=== PATIENT | female | born 1930 | race Caucasian/White ===

== ENCOUNTER 2017-07-10 12:55 | Inpatient (IN) | payer MEDICARE, OTHER ==
[2017-07-10] MEDS ORDERED: SODIUM CHLORIDE 0.9% 1,000 ML IV STA ×3 (13:08→15:10)
[2017-07-10] MEDS ORDERED: LORazepam 2 MG/ML INJ IV STA (13:09)
--- NOTE | 2017-07-10 13:11 | ED ---
General Adult HPI - General Stated complaint: Near Syncope Time Seen by Provider: 07/10/17 13:02 Source: RN notes reviewed, old records reviewed - History of Present Illness Initial comments: This is an 86-year-old female to the ER for evaluation per patient is ER for evasive near syncope, versus syncope with collapse. Patient does have history of heart disease, patient herself is poor strain history of pain from chart and EMS. Patient apparently had near syncopal episode per staff and was elevated heartrate. EMS was called. Patient to ER. Patient is angry about being in emergency room, she denies any complaints and wants to go home, patient is unable to make her own medical decisions - Related Data Home Medications Medication Instructions Recorded Confirmed Acetaminophen Tab [Tylenol] 650 mg PO TID 06/08/14 07/10/17 Magnesium Hydroxide [Milk of 30 ml PO DAILY PRN 06/08/14 07/10/17 Magnesia Concentrate] Nitroglycerin Sl Tabs [Nitrostat] 0.4 mg SL Q5M PRN 06/08/14 07/10/17 Ranitidine HCl 75 mg PO HS 06/09/14 07/10/17 Aspirin EC [Ecotrin Low Dose] 81 mg PO DAILY 07/10/17 07/10/17 Colloidal Oatmeal [Eucerin Eczema 1 applic TOPICAL HS 07/10/17 07/10/17 Relief] Escitalopram [Lexapro] 10 mg PO DAILY 07/10/17 07/10/17 HYDROcodone/APAP 5-325MG [[place] 1 tab PO Q6HR PRN 07/10/17 07/10/17 5-325] Levothyroxine Sodium [Synthroid] 75 mcg PO DAILY 07/10/17 07/10/17 Lisinopril [Zestril] 10 mg PO DAILY 07/10/17 07/10/17 Loperamide HCl [Imodium A-D] 2 mg PO DAILY PRN 07/10/17 07/10/17 Memantine [Namenda] 10 mg PO BID 07/10/17 07/10/17 Mylanta 30 ml PO Q6H PRN 07/10/17 07/10/17 Allergies Allergy/AdvReac Type Severity Reaction Status Date / Time No Known Allergies Allergy Verified 07/10/17 14:15 Review of Systems ROS Statement: Those systems with pertinent positive or pertinent negative responses have been documented in the HPI. ROS Other: All systems not noted in ROS Statement are negative. Past Medical History Past Medical History: Heart Failure, Dementia, GERD/Reflux, Hypertension, Renal Disease, Thyroid Disorder Additional Past Medical History / Comment(s): ANEMIA History of Any Multi-Drug Resistant Organisms: None Reported Past Surgical History: Heart Catheterization With Stent, Hysterectomy Additional Past Surgical History / Comment(s): CERVICAL FUSION Past Anesthesia/Blood Transfusion Reactions: No Reported Reaction Date of Last Stent Placement:: UNKNOWN Past Psychological History: No Psychological Hx Reported Additional Psychological History / Comment(s): DEMENTIA Smoking Status: Never smoker Past Alcohol Use History: None Reported Past Drug Use History: None Reported - Past Family History Father Family Medical History: Cancer Additional Family Medical History / Comment(s): STOMACH CA Mother Family Medical History: Dementia General Exam Limitations: altered mental status General appearance: alert, in no apparent distress Head exam: Present: atraumatic, normocephalic, normal inspection Eye exam: Present: normal appearance, PERRL, EOMI. Absent: scleral icterus, conjunctival injection, periorbital swelling ENT exam: Present: normal exam, mucous membranes moist Neck exam: Present: normal inspection. Absent: tenderness, meningismus, lymphadenopathy Respiratory exam: Present: normal lung sounds bilaterally. Absent: respiratory distress, wheezes, rales, rhonchi, stridor Cardiovascular Exam: Present: normal rhythm, tachycardia, normal heart sounds. Absent: systolic murmur, diastolic murmur, rubs, gallop, clicks GI/Abdominal exam: Present: soft, normal bowel sounds. Absent: distended, tenderness, guarding, rebound, rigid Extremities exam: Present: normal inspection, full ROM, normal capillary refill. Absent: tenderness, pedal edema, joint swelling, calf tenderness Back exam: Present: normal inspection Neurological exam: Present: alert, oriented X3, CN II-XII intact Psychiatric exam: Present: normal affect, normal mood Skin exam: Present: warm, dry, intact, normal color. Absent: rash Course Vital Signs 07/10/17 07/10/17 13:00 14:19 Temperature 97.8 F Pulse Rate 98 104 H Respiratory 18 16 Rate Blood Pressure 150/69 111/56 O2 Sat by Pulse 97 97 Oximetry - Reevaluation(s) Reevaluation #1: 07/10/17 13:10 Medical record and transferring paperwork are reviewed Reevaluation #2: 07/10/17 16:28 She is much improved with IV hydration, patient sitting up in bed eating Medical Decision Making - Medical Decision Making 86 female to ER for eversion of heart rate and weakness. Patient severe severe dehydration on exam and labs. Patient will be admitted for IV hydration. Patient given antibiotics for possible underlying infection versus urinary tract infection. Patient currently sitting up in bed eating in no acute distress - Lab Data Result diagrams: 07/10/17 14:00 07/10/17 14:00 Lab Results 07/10/17 07/10/17 07/10/17 Range/Units 14:00 14:00 14:00 WBC 10.5 (3.8-10.6) k/uL RBC 4.30 (3.80-5.40) m/uL Hgb 13.1 (11.4-16.0) gm/dL Hct 40.4 (34.0-46.0) % MCV 94.0 (80.0-100.0) fL MCH 30.4 (25.0-35.0) pg MCHC 32.4 (31.0-37.0) g/dL RDW 14.3 (11.5-15.5) % Plt Count 283 (150-450) k/uL Neutrophils % 53 % Lymphocytes % 37 % Monocytes % 6 % Eosinophils % 2 % Basophils % 1 % Neutrophils # 5.5 (1.3-7.7) k/uL Lymphocytes # 3.8 (1.0-4.8) k/uL Monocytes # 0.6 (0-1.0) k/uL Eosinophils # 0.2 (0-0.7) k/uL Basophils # 0.1 (0-0.2) k/uL PT (9.0-12.0) sec INR (<1.2) APTT (22.0-30.0) sec Sodium 146 H (137-145) mmol/L Potassium 4.8 (3.5-5.1) mmol/L Chloride 113 H (98-107) mmol/L Carbon Dioxide 15 L (22-30) mmol/L Anion Gap 18 mmol/L BUN 16 (7-17) mg/dL Creatinine 1.10 H (0.52-1.04) mg/dL Est GFR (MDRD) Af Amer 57 (>60 ml/min/1.73 sqM) Est GFR (MDRD) Non-Af 47 (>60 ml/min/1.73 sqM) Glucose 72 L (74-99) mg/dL Plasma Lactic Acid Carrillo (0.7-2.0) mmol/L Calcium 9.2 (8.4-10.2) mg/dL Phosphorus 3.6 (2.5-4.5) mg/dL Magnesium 1.9 (1.6-2.3) mg/dL Total Bilirubin 0.3 (0.2-1.3) mg/dL AST 24 (14-36) U/L ALT 21 (9-52) U/L Alkaline Phosphatase 85 (38-126) U/L Total Creatine Kinase 46 (30-135) U/L CK-MB (CK-2) 0.6 (0.0-2.4) ng/mL CK-MB (CK-2) Rel Index 1.3 Troponin I <0.012 (0.000-0.034) ng/mL Total Protein 7.1 (6.3-8.2) g/dL Albumin 4.0 (3.5-5.0) g/dL TSH 0.381 L (0.465-4.680) mIU/L Salicylates mg/dL Acetaminophen ug/mL Acetone, Qual (Negative) 07/10/17 07/10/17 07/10/17 Range/Units 14:00 14:00 14:00 WBC (3.8-10.6) k/uL RBC (3.80-5.40) m/uL Hgb (11.4-16.0) gm/dL Hct (34.0-46.0) % MCV (80.0-100.0) fL MCH (25.0-35.0) pg MCHC (31.0-37.0) g/dL RDW (11.5-15.5) % Plt Count (150-450) k/uL Neutrophils % % Lymphocytes % % Monocytes % % Eosinophils % % Basophils % % Neutrophils # (1.3-7.7) k/uL Lymphocytes # (1.0-4.8) k/uL Monocytes # (0-1.0) k/uL Eosinophils # (0-0.7) k/uL Basophils # (0-0.2) k/uL PT 9.6 (9.0-12.0) sec INR 1.0 (<1.2) APTT 22.2 (22.0-30.0) sec Sodium (137-145) mmol/L Potassium (3.5-5.1) mmol/L Chloride (98-107) mmol/L Carbon Dioxide (22-30) mmol/L Anion Gap mmol/L BUN (7-17) mg/dL Creatinine (0.52-1.04) mg/dL Est GFR (MDRD) Af Amer (>60 ml/min/1.73 sqM) Est GFR (MDRD) Non-Af (>60 ml/min/1.73 sqM) Glucose (74-99) mg/dL Plasma Lactic Acid Carrillo 6.3 H* (0.7-2.0) mmol/L Calcium (8.4-10.2) mg/dL Phosphorus (2.5-4.5) mg/dL Magnesium (1.6-2.3) mg/dL Total Bilirubin (0.2-1.3) mg/dL AST (14-36) U/L ALT (9-52) U/L Alkaline Phosphatase (38-126) U/L Total Creatine Kinase (30-135) U/L CK-MB (CK-2) (0.0-2.4) ng/mL CK-MB (CK-2) Rel Index Troponin I (0.000-0.034) ng/mL Total Protein (6.3-8.2) g/dL Albumin (3.5-5.0) g/dL TSH (0.465-4.680) mIU/L Salicylates <1.0 mg/dL Acetaminophen <10.0 ug/mL Acetone, Qual Negative (Negative) - Radiology Data Radiology results: report reviewed (S x-rays negative for acute disease), image reviewed Disposition Clinical Impression: Dehydration, Weakness, Lactic acidosis Disposition: ADMITTED IP TO THIS [facility] Condition: Fair Referrals: Lb Kiser MD [Primary Care Provider] - 1-2 days
[2017-07-10] MEDS ORDERED: LORazepam 2 MG/ML INJ IM STA (13:25)
[2017-07-10 14:23] LABS: Basophils # (A) 0.1 k/uL (0-0.2); Basophils % (A) 1 %; Eosinophils # (A) 0.2 k/uL (0-0.7); Eosinophils % (A) 2 %; HCT 40.4 % (34.0-46.0); HGB 13.1 gm/dL (11.4-16.0); Lymphocytes # (A) 3.8 k/uL (1.0-4.8); Lymphocytes % (A) 37 %; MCH 30.4 pg (25.0-35.0); MCHC 32.4 g/dL (31.0-37.0); Monocytes # (A) 0.6 k/uL (0-1.0); Monocytes % (A) 6 %; Neutrophils # (A) 5.5 k/uL (1.3-7.7); Neutrophils % (A) 53 %; Platelet Count 283 k/uL (150-450); RDW 14.3 % (11.5-15.5); WBC 10.5 k/uL (3.8-10.6)
[2017-07-10 14:28] LABS: Calcium 9.2 mg/dL (8.4-10.2); Magnesium 1.9 mg/dL (1.6-2.3); Phosphorus 3.6 mg/dL (2.5-4.5); Total Bilirubin 0.3 mg/dL (0.2-1.3); Total Protein 7.1 g/dL (6.3-8.2)
[2017-07-10 14:35] LABS: Creatine Kinase 46 U/L (30-135)
--- NOTE | 2017-07-10 14:35 | XR ---
EXAMINATION TYPE: XR chest 2V DATE OF EXAM: 07/10/2017 COMPARISON: Summary 22,014 HISTORY: Weakness. Chest pain. TECHNIQUE: Frontal and lateral views of the chest are obtained. FINDINGS: Large hiatal hernia is again noted. The lungs are clear. No pneumothorax or pleural effusi on is identified. The cardiac silhouette appears slightly enlarged. Calcifications are identified in the aortic arch. IMPRESSION: No change in appearance of the chest.
[2017-07-10 14:48] LABS: Creatine Kinase MB 0.6 ng/mL (0.0-2.4); Troponin I <0.012 ng/mL (0.000-0.034)
[2017-07-10 15:03] LABS: Potassium 4.8 mmol/L (3.5-5.1)
[2017-07-10 15:10] LABS: Partial Thromboplastin Time 22.2 sec (22.0-30.0); Prothrombin Time 9.6 sec (9.0-12.0)
[2017-07-10] MEDS ORDERED: DEXTROSE 50%-WATER 50 ML SYRINGE IVP STA (15:10)
[2017-07-10 15:31] LABS: Acetaminophen <10.0 ug/mL; Salicylate <1.0 mg/dL
[2017-07-10] MEDS ORDERED: SODIUM CHLORIDE 0.9% 1,000 ML IV ONE (16:26)
[2017-07-10] MEDS ORDERED: cefTRIAXone IN SWFI 1,000 MG/10 ML SYRINGE IVP STA (16:27)
[2017-07-10 21:56] VITALS: BMI 20.2
[2017-07-11] MEDS: LORazepam 2 MG/ML INJ IV PRN ×2 (01:57→23:25)
[2017-07-11] MEDS: ENOXAPARIN 40 MG/0.4 ML SYRINGE SQ SCH (09:08)
[2017-07-11] MEDS: cefTRIAXone IN SWFI 1,000 MG/10 ML SYRINGE IVP SCH (09:33)
--- NOTE | 2017-07-11 09:36 | HP ---
HISTORY AND PHYSICAL DATE OF SERVICE: 07/10/2017 CHIEF COMPLAINT: Near syncope and collapse. HISTORY OF PRESENT ILLNESS: This 86-year-old woman with a past medical history of multiple medical problems including CHF, history of dementia, GERD, hypertension, history of anemia, history of CAD and stent being followed by Dr. Kiser in [facility], has had an episode of syncope. The patient apparently had diminished p.o. intake and patient was found to have dehydration at which time was admitted for further evaluation and treatment. The patient was currently confused and unable to give any coherent history. Most of the history taken my discussion with staff and as well as review of the chart. Plasma lactic acid elevated on admission. PAST MEDICAL HISTORY: History of CHF, dementia, GERD, hypertension, history of hypothyroidism, history anemia. MEDICATIONS: Home medications are; 1. Ranitidine 75 mg q.h.s. 2. Nitro 0.4 sublingual p.r.n. 3. Mylanta 30 mL q.6. 4. Namenda 10 mg b.i.d. 5. Magnesium, Milk of Magnesia. 6. Imodium A-D 2 mg daily p.r.n. 7. Zestril 10 mg p.o. daily. 8. Synthroid 75 mcg p.o. daily. 9. [place] 5 mg q.6 p.r.n. 10.Lexapro 10 mg daily. 11.Eucerin 1 application topically q.h.s. 12.Ecotrin 81 mg daily. 13.Tylenol 650 p.o. t.i.d. ALLERGIES: Allergies are none. Family history, social history, review of systems could not be taken because of the patient's change in mental status. Apparently family history has stomach cancer in the family and no history of smoking per chart. PHYSICAL EXAM: The patient is conscious, but confused, arousable. Pulse 82, blood pressure 135/60, respirations 16, temperature 97.8, pulse ox 98% on room air. HEENT: Conjunctivae normal. Oral mucosa is dry. NECK: No jugular venous distention. No carotid bruit. No lymph node enlargement. CARDIOVASCULAR: S1, S2 muffled. No S3 or S4. RESPIRATORY: Breath sounds diminished at the bases. A few scattered rhonchi and crackles. ABDOMEN: Soft, nontender. No mass palpable. LEGS: No edema, no swelling. NERVOUS SYSTEM: Higher functions as mentioned earlier. Moves all 4 limbs. No focal deficits. LYMPHATICS: No lymphadenopathy of the neck, axillae or groin. SKIN: No ulcer, rash or bleeding. JOINTS: No active deforming arthropathy. LABS: CBC within normal. Sodium 146. Creatinine 1.10. Lactic acid is 6.3. ASSESSMENT: 1. Severe dehydration as well as acute prerenal renal failure with acute tubular necrosis, present on admission. 2. Dementia. 3. Elevated plasma lactic acid secondary dehydration. 4. Hypernatremia. 5. Reduced TSH. 6. History of dementia. 7. History of congestive heart failure. 8. History of gastroesophageal reflux disease. 9. Hypertension. 10.History of hypothyroidism. 11.History of coronary artery disease and stent. 12.History of hysterectomy. RECOMMENDATIONS AND DISCUSSION: This 86-year-old woman who presented with multiple complex medical issues, will monitor the patient closely. Continue the current medications. Continue symptomatic treatment. Otherwise at this time I recommend resume the home medications. IV fluids. I would recommend also check free T4, free T3 also and if they are elevated recommend to reduced dose of thyroid. Otherwise repeat labs will be recommended. Guarded prognosis because of multiple complex medical issues. Further recommendations to follow. A copy of dictation forwarded to Dr. Kiser who is the primary physician. Empiric antibiotics have been initiated will follow the cultures. MMODL / IJN: [id number] /
[2017-07-11] MEDS ORDERED: NITROGLYCERIN SL TABS 0.4 MG TAB SUBLINGUAL PRN (10:28)
[2017-07-11] MEDS ORDERED: HYDROcodone/APAP 5-325MG 1 EACH TAB PO PRN (10:28)
[2017-07-11] MEDS ORDERED: LOPERAMIDE 2 MG CAP PO PRN (10:28)
[2017-07-11] MEDS ORDERED: MAGNESIUM HYDROXIDE 2,400 MG/10 ML CUP PO PRN (10:28)
[2017-07-11] MEDS: ESCITALOPRAM 10 MG TAB PO SCH (11:58)
[2017-07-11] MEDS: ASPIRIN 81 MG PO SCH (11:58)
[2017-07-11] MEDS: LISINOPRIL 10 MG TAB PO SCH (11:58)
[2017-07-11 14:39] LABS: Anion Gap 8 mmol/L; Blood Urea Nitrogen 11 mg/dL (7-17); Calcium 8.2 mg/dL (8.4-10.2); Carbon Dioxide 20 mmol/L (22-30); Chloride 115 mmol/L (98-107); Glucose 103 mg/dL (74-99); Sodium 143 mmol/L (137-145)
[2017-07-11] MEDS: ACETAMINOPHEN TAB 325 MG TAB PO SCH ×2 (17:30→21:28)
[2017-07-11] MEDS: SODIUM CHLORIDE 0.9% 1,000 ML IV SCH ×2 (17:30→23:26)
[2017-07-11 18:42] LABS: T4, Free (Free Thyroxine) 1.38 ng/dL (0.78-2.19)
[2017-07-11] MEDS ORDERED: FAMOTIDINE 20 MG TAB PO SCH (21:00)
--- NOTE | 2017-07-11 22:06 | PN ---
PROGRESS NOTE DATE OF SERVICE: 07/11/2017. INTERVAL HISTORY: This 86-year-old woman was admitted with severe dehydration as well as acute renal failure with acute tubular necrosis, being closely monitored. After IV fluids, sensorium is slightly improved, but patient still continues to be completely confused and slightly combative. No chest pain. No palpitations. No fever. EXAM: The patient is conscious but confused. Pulse 80, blood pressure 168/77, respiration 18, temperature 97.2, pulse ox 98% on room air. HEENT conjunctivae normal. Neck: No jugular venous distention. Cardiovascular: S1, S2 muffled. Respiratory: Breath sounds diminished at the bases. A few scattered rhonchi. No crackles. Abdomen is soft, nontender. Legs are no edema. Central nervous system: No focal deficits. LABS: Sodium 143 and glucose 103, plasma lactic acid 1.7. Influenza not detected. ASSESSMENT: 1. Severe dehydration as well as acute prerenal acute renal failure with acute tubular necrosis, present on admission because of diminished p.o. intake. 2. Dementia. 3. Elevated plasma lactic acid secondary dehydration. 4. Hypernatremia. 5. Reduced TSH. 6. History of dementia. 7. History of congestive heart failure. 8. History of gastroesophageal reflux disease. 9. Hypertension. 10.Hypothyroidism. 11.History of coronary artery disease, stent. 12.History of hysterectomy. RECOMMENDATIONS AND DISCUSSION: Continue current medications, management and symptomatic treatment. Otherwise, at this time, I would recommend continue with IV fluids. Repeat labs. Also check free T3 and free T4. Otherwise continue the rest of the medications. There is no obvious evidence of infections at this time. Continue to monitor. Further recommendations to follow. UA is still pending. We will obtain the UA with micro as well. MMODL / IJN: [id number] /
[2017-07-11] MEDS: MEMANTINE 10 MG TAB PO SCH (22:14)
[2017-07-12] MEDS: LORazepam 2 MG/ML INJ IV PRN (04:19)
[2017-07-12] MEDS ORDERED: LEVOTHYROXINE 75 MCG TAB PO SCH (06:30)
[2017-07-12 08:05] VITALS: BP 175/81; PULSE 94; RESP 18; TEMP 97.4
[2017-07-12 08:12] LABS: Basophils # (A) 0.1 k/uL (0-0.2); Basophils % (A) 1 %; Eosinophils # (A) 0.2 k/uL (0-0.7); Eosinophils % (A) 3 %; HCT 34.8 % (34.0-46.0); HGB 11.6 gm/dL (11.4-16.0); Lymphocytes # (A) 1.7 k/uL (1.0-4.8); Lymphocytes % (A) 32 %; MCH 30.6 pg (25.0-35.0); MCHC 33.3 g/dL (31.0-37.0); MCV 91.7 fL (80.0-100.0); Mean Platelet Volume 7.6; Monocytes # (A) 0.3 k/uL (0-1.0); Monocytes % (A) 7 %; Neutrophils # (A) 2.9 k/uL (1.3-7.7); Neutrophils % (A) 55 %; Platelet Count 211 k/uL (150-450); RDW 13.9 % (11.5-15.5); WBC 5.2 k/uL (3.8-10.6)
[2017-07-12 08:35] LABS: Anion Gap 9 mmol/L; Blood Urea Nitrogen 9 mg/dL (7-17); Calcium 8.7 mg/dL (8.4-10.2); Carbon Dioxide 20 mmol/L (22-30); Chloride 114 mmol/L (98-107); Glucose 74 mg/dL (74-99); Potassium 3.9 mmol/L (3.5-5.1); Sodium 143 mmol/L (137-145)
[2017-07-12] MEDS: ENOXAPARIN 40 MG/0.4 ML SYRINGE SQ SCH (09:07)
[2017-07-12] MEDS: ASPIRIN 81 MG PO SCH (09:08)
[2017-07-12] MEDS: MEMANTINE 10 MG TAB PO SCH (09:08)
[2017-07-12] MEDS: ESCITALOPRAM 10 MG TAB PO SCH (09:08)
[2017-07-12] MEDS: LISINOPRIL 10 MG TAB PO SCH (09:08)
[2017-07-12] MEDS: ACETAMINOPHEN TAB 325 MG TAB PO SCH (09:13)
[2017-07-12] MEDS: cefTRIAXone IN SWFI 1,000 MG/10 ML SYRINGE IVP SCH (09:14)
[2017-07-12 10:35] LABS: Appearance,Urine Clear (Clear); Bilirubin,Urine Negative (Negative); Blood,Urine Negative (Negative); Color,Urine Colorless; Glucose,Urine (UA) Negative (Negative); Ketones,Urine Negative (Negative); Leukocyte Esterase,Urine Negative (Negative); Nitrite,Urine Negative (Negative); Protein,Urine Negative (Negative); Specific Gravity,Urine 1.007 (1.001-1.035); Urobilinogen,Urine <2.0 mg/dL (<2.0)
--- NOTE | 2017-07-12 13:15 | P.DS ---
Providers Date of admission: 07/10/17 16:26 Expected date of discharge: 07/12/17 Attending physician: Amy Laura Primary care physician: Lb Kiser [place] Hospital Course: Final Diagnoses: Severe dehydration as well as acute prerenal renal failure with acute tubular necrosis present on admission, secondary to diminished oral intake. Dementia Elevated Plasma lactic acid secondary to dehydration Hypernatremia Reduced TSH Chronic CHF GERDS HTN CAD Hospital course: This is an 86-year-old female admitted with severe dehydration , acute renal failure, acute tubular necrosis and multiple other medical issues. Received IV fluid hydration with significant clinical improvement in sensorium, confusion persists. Patient is being discharged to [facility] subacute rehab. in a stable condition with guarded prognosis. Physical exam::VSS, cardiovascular muffled S1 and S2, no edema. respiratory bilateral bases diminished with occasional scattered rhonchi, no crackles, abdomen soft nontender, and psychiatry: alert, confused. The impression and plan of care has been dictated as directed. : I performed a history and examination of this patient, discussed the same with the dictator. I agree with the dictator's note ,documented as a scribe. Any additional findings or plans will be noted. Time taken: 35 minutes Patient Condition at Discharge: Stable Plan - Discharge Summary New Discharge Prescriptions: Continue Acetaminophen Tab [Tylenol] 650 mg PO TID Nitroglycerin Sl Tabs [Nitrostat] 0.4 mg SL Q5M PRN PRN Reason: Chest Pain Magnesium Hydroxide [Milk of Magnesia Concentrate] 30 ml PO DAILY PRN PRN Reason: Constipation Ranitidine HCl 75 mg PO HS Aspirin EC [Ecotrin Low Dose] 81 mg PO DAILY Colloidal Oatmeal [Eucerin Eczema Relief] 1 applic TOPICAL HS Escitalopram [Lexapro] 10 mg PO DAILY Levothyroxine Sodium [Synthroid] 75 mcg PO DAILY Lisinopril [Zestril] 10 mg PO DAILY Loperamide HCl [Imodium A-D] 2 mg PO DAILY PRN PRN Reason: Loose Stool Memantine [Namenda] 10 mg PO BID Mylanta 30 ml PO Q6H PRN PRN Reason: Indigestion HYDROcodone/APAP 5-325MG [[place] 5-325] 1 tab PO Q6HR PRN #20 tab PRN Reason: Moderate To Severe Pain Discharge Medication List Acetaminophen Tab [Tylenol] 650 mg PO TID 06/08/14 [History] Magnesium Hydroxide [Milk of Magnesia Concentrate] 30 ml PO DAILY PRN 06/08/14 [ History] Nitroglycerin Sl Tabs [Nitrostat] 0.4 mg SL Q5M PRN 06/08/14 [History] Ranitidine HCl 75 mg PO HS 06/09/14 [History] Aspirin EC [Ecotrin Low Dose] 81 mg PO DAILY 07/10/17 [History] Colloidal Oatmeal [Eucerin Eczema Relief] 1 applic TOPICAL HS 07/10/17 [History] Escitalopram [Lexapro] 10 mg PO DAILY 07/10/17 [History] Levothyroxine Sodium [Synthroid] 75 mcg PO DAILY 07/10/17 [History] Lisinopril [Zestril] 10 mg PO DAILY 07/10/17 [History] Loperamide HCl [Imodium A-D] 2 mg PO DAILY PRN 07/10/17 [History] Memantine [Namenda] 10 mg PO BID 07/10/17 [History] Mylanta 30 ml PO Q6H PRN 07/10/17 [History] HYDROcodone/APAP 5-325MG [[place] 5-325] 1 tab PO Q6HR PRN #20 tab 07/12/17 [Rx] Follow up Appointment(s)/Referral(s): Lb Kiser MD [Primary Care Provider] - 3 Days
[2017-07-12] MEDS ORDERED: LORazepam 0.5 MG TAB PO STA (14:35)
== END 2017-07-12 16:20 | DRG 640 ==
LOC: EC 12:55 → 5MS5E 16:26
PROVIDERS: ADMIT Hospitalist; ATTEND Hospitalist
DX: E86.0 Dehydration (principal); N17.0 Acute kidney failure with tubular necrosis; E87.0 Hyperosmolality and hypernatremia; I50.9 Heart failure, unspecified; F03.90 Unspecified dementia, unspecified severity, without behavioral disturbance, psychotic disturbance, mood disturbance, and anxiety; K21.9 Gastro-esophageal reflux disease without esophagitis; E03.9 Hypothyroidism, unspecified; D64.9 Anemia, unspecified; I25.10 Atherosclerotic heart disease of native coronary artery without angina pectoris; I11.0 Hypertensive heart disease with heart failure; Z95.5 Presence of coronary angioplasty implant and graft; Z80.0 Family history of malignant neoplasm of digestive organs; Z90.710 Acquired absence of both cervix and uterus; Z79.899 Other long term (current) drug therapy; Z79.891 Long term (current) use of opiate analgesic; Z98.1 Arthrodesis status
CPT/HCPCS: 36415; 71046; 80048; 80053; 81003; 82009; 82550; 82553; 83520; 83605; 83735; 84100; 84439; 84443; 84481; 84484; 85025; 85610; 85730; 87502; 96360; 96361; 96372; 96374; 96375; 99285